=== PATIENT | male | born 1940 | race Caucasian/White ===

== ENCOUNTER 2016-10-21 11:35 | Emergency (ER) | payer OTHER ==
[2016-10-21 12:35] LABS: APPEARANCE,URINE CLEAR (CLEAR); COLOR,URINE YELLOW (YELLOW); OCCULT BLOOD,URINE NEGATIVE (NEGATIVE); UROBILINOGEN URINE 0.2 Eu (0.2-1.0)
--- NOTE | 2016-10-21 12:35 | ED Physician Documentation ---
Flank Pain - HISTORIAN Historian: patient - HPI Stated Complaint: lt flank pain Chief Complaint: Flank Pain Additional Information: started 3 days ago, sharp stabbing L flank pain, more toward front than back. but radiates around to front. no other complaints. hurts to change positions, but doesnt feel like a muscle. Onset: days ago Duration: waxing, waning Timing: still present Context: denies: out of country travel, bad food, recent trauma Severity: moderate Quality: pain, sharp, stabbing Associated Symptoms: other (urine has an odor) Exacerbated by: movements Relieved by: remaining still Further Comments: no - ROS CONST: no problems GI/: none. 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, endocarditis) Ischemic Bowel Risk Factors: none Other History: none Surgeries/Procedures: other (open heart) Medications: none Allergies: NKDA - VITAL SIGNS Vital Signs: Vital Signs Temp Pulse Resp BP Pulse Ox 97.8 F 68 16 178/82 96 10/21/16 11:35 10/21/16 11:35 10/21/16 11:35 10/21/16 11:35 10/21/16 11:35 - REVIEWED ASSESSMENTS Nursing Assessment Reviewed: Yes Vitals Reviewed: Yes ED Results Lab/Radiology - Lab Results Lab Results: UA pos for nitrites/leuk - Radiology Radiology Impressions: CT shows mild sigmoid divertic ulitis - Orders Orders: ED Orders Category Date Time Status CT ABDOMEN PELVIS S [CT ABD & PELVIS W/O CON] Stat Exams 10/21/16 Ordered CBC/PLATELET/DIFF Routine Lab 10/21/16 12:30 Received CMP [CMP] Routine Lab 10/21/16 12:30 Received URINALYSIS Routine Lab 10/21/16 Ordered Abdominal Pain Physical Exam - Physical Exam General Appearance: no acute distress, alert EENT: eye inspection normal, ENT inspection normal, pharynx normal NECK: normal inspection RESPIRATORY: no resp distress CVS: reg rate & rhythm ABDOMEN: soft, normal bowel sounds, no distension, tenderness. No: obturator sign, rebound, guarding, Rovsing's sign BACK: normal inspection SKIN: warm/dry EXTREMITIES: non-tender, normal range of motion NEURO: oriented X3 Vital Signs: Vital Signs Temp Pulse Resp BP Pulse Ox 97.8 F 68 16 178/82 96 10/21/16 11:35 10/21/16 11:35 10/21/16 11:35 10/21/16 11:35 10/21/16 11:35 Discharge Clincal Impression: Diverticulitis large intestine w/o perforation or abscess w/o bleeding Referrals: Greg Arce MD [Primary Care Provider] - 2 Days Condition: Stable Disposition: 01 HOME, SELF-CARE Decision to Admit: NO Date of Decison to Admit: 10/21/16 Decision Time: 13:23
[2016-10-21 12:38] LABS: BASOPHILS % 0.9 (0.0-1.5); EOSINOPHILS % 2.8 % (0.0-6.8); MEAN CORPUSCULAR HEMOGLOBIN 28.7 pg (28.0-34.0); MEAN CORPUSCULAR VOLUME 85.6 fl (80.0-100.0); MONOCYTES % 5.6 % (0.0-11.0); NEUTROPHILS # 6.1 # k/uL (1.4-7.7)
[2016-10-21 14:08] VITALS: BP 143/66
--- NOTE | 2016-10-21 15:13 | Diagnostic Imaging Report ---
ALYCE MCNEIL [facility] [id number] [facility] [address] [place], [place]. [address] Report Submission Date: Oct 21, 2016 1:17:37 PM CDT Patient Study Name: CESAR BENITEZ Date: Oct 21, 2016 12:47:41 PM CDT Modality Type: CT\SR Gender: M Description: CT ABD & PELVIS W/O CO : 40 Institution: [facility] Physician: ALYCE MCNEIL Examination: CT Abdomen/pelvis History: Flank discomfort Comparison exams: None available Technique: CT Abdomen/pelvis without contrast protocol. Findings: Liver, spleen, adrenal glands, kidneys, and pancreas are without irregularity given exam technique. Gallbladder not enlarged. Gallstones along the dependent margin. No adjacent inflammation. No suspicious renal calcifications. Small 1 cm cyst posterior margin left kidney, hyperdense cyst inferior margin left kidney. Ureters are not dilated in their course through the abdomen and pelvis. No suspicious calcification. Small left lateral bladder diverticula. Abdominal aorta with mild peripheral atherosclerotic disease. No abnormal dilation. Cardiac silhouette not enlarged. No pericardial effusion. Bowel without contrast limiting evaluation. No evidence for acute mesenteric inflammation or free air. Stool throughout the large bowel limiting sensitivity. Sigmoid diverticula. Mild stranding involving the proximal sigmoid colon region. Appendix is visualized and is without inflammatory changes. Hiatal hernia. Osseous structures demonstrate degenerative changes. Lung bases demonstrates mild infiltrates involving the right lower lung and left lung lingula. Impression: Mild diverticulitis. No evidence for abscess or perforation at this time. Mild right lower lung and left lingular parenchymal infiltrates. No effusion. No other acute abdominal inflammatory process. Gallstones. No adjacent inflammation. Hiatal hernia. Electronically signed on Oct 21, 2016 1:17:37 PM CDT by: Norbert PEREZ
== END 2016-10-21 14:00 | disposition home or self-care (01) ==
LOC: ED 11:35
DX: K57.32 Diverticulitis of large intestine without perforation or abscess without bleeding (principal)
CPT/HCPCS: 74176; 80053; 81002; 85025; 87086; 99283; S1016